=== PATIENT | female | born 1945 | race American Indian/Alaskan Native ===

== ENCOUNTER 2021-05-06 13:13 | Emergency (ER) | payer MEDICARE ==
[2021-05-06 15:20] VITALS: BP 141/59
--- NOTE | 2021-05-06 18:21 | Emergency Department Report ---
ED General Adult HPI - General Chief complaint: Skin Rash Stated complaint: SKIN PROBLEM PUI?: No Time Seen by Provider: 05/06/21 18:11 Source: patient Mode of arrival: Ambulatory Limitations: No Limitations - History of Present Illness Initial comments: 76-year-old -[place] female presents to the emergency room concern for things crawling under her skin. Patient states is been going on for moment and had seen her primary care provider Dr. Betsy Raymond and was prescribed a fluocinolone 0.01%. Which she reports is not helping. Patient is currently on montelukast, omeprazole, amlodipine and eyedrops. Her next appointment with her primary care provider is on [address] Betsy Raymond. Onset/Timin -: week(s) Location: lower extremity Quality: other (It feels like something is crawling under her skin) Improves with: none Worsens with: none Associated Symptoms: denies other symptoms - Related Data Previous Rx's Medication Instructions Recorded Last Taken Type Clotrimazole/Betamethasone Dip 1 applic TP BID #15 cream..g. 05/06/21 Unknown Rx [Lotrisone Cream] Allergies Allergy/AdvReac Type Severity Reaction Status Date / Time No Known Allergies Allergy Unverified 05/06/21 15:20 ED Review of Systems ROS: Stated complaint: SKIN PROBLEM Other details as noted in HPI Comment: All other systems reviewed and negative ED Past Medical Hx - Medications Home Medications: Home Medications Medication Instructions Recorded Confirmed Last Taken Type Clotrimazole/Betamethasone Dip 1 applic TP BID #15 cream..g. 05/06/21 Unknown Rx [Lotrisone Cream] ED Physical Exam - General Limitations: No Limitations General appearance: alert, in no apparent distress - Head Head exam: Present: atraumatic, normocephalic - Eye Eye exam: Present: normal appearance - ENT ENT exam: Present: mucous membranes moist - Neck Neck exam: Present: normal inspection - Respiratory Respiratory exam: Present: normal lung sounds bilaterally. Absent: respiratory distress - Cardiovascular Cardiovascular Exam: Present: regular rate, normal rhythm. Absent: systolic murmur, diastolic murmur, rubs, gallop - GI/Abdominal GI/Abdominal exam: Present: soft, normal bowel sounds - Extremities Exam Extremities exam: Present: normal inspection - Back Exam Back exam: Present: normal inspection - Neurological Exam Neurological exam: Present: alert, oriented X3 - Psychiatric Psychiatric exam: Present: normal affect, normal mood - Skin Skin exam: Present: warm, dry, intact, normal color. Absent: rash ED Course Vital Signs 05/06/21 15:16 Temperature 98.9 F Pulse Rate 78 Respiratory 16 Rate Blood Pressure 141/59 O2 Sat by Pulse 98 Oximetry ED Medical Decision Making - Medical Decision Making 76-year-old -[place] female presents to the emergency room concern for things crawling under her skin. Patient states is been going on for moment and had seen her primary care provider Dr. Betsy Raymond and was prescribed a fluocinolone 0.01%. Which she reports is not helping. Patient is currently on montelukast, omeprazole, amlodipine and eyedrops. Her next appointment with her primary care provider is on [address] Betsy Raymond. Critical care attestation.: If time is entered above; I have spent that time in minutes in the direct care of this critically ill patient, excluding procedure time. ED Disposition Clinical Impression: Pruritus Disposition: 01 HOME / SELF CARE / HOMELESS Is pt being admited?: No Does the pt Need Aspirin: No Condition: Stable Instructions: Pruritus Additional Instructions: Use cream to legs and follow-up with your primary care provider. Prescriptions: Clotrimazole/Betamethasone Dip [Lotrisone Cream] 1 applic TP BID #15 cream..g. Referrals: PRIMARY CARE, [Primary Care Provider] - 3-5 Days THERESA RAYMOND MD [Staff Physician] - 3-5 Days Time of Disposition: 21:05
== END 2021-05-06 21:15 | disposition home or self-care (01) ==
LOC: ED 13:13
DX: L29.9 Pruritus, unspecified (principal); Z79.899 Other long term (current) drug therapy
CPT/HCPCS: 99282

== ENCOUNTER 2022-01-12 22:20 | Emergency (ER) | payer MEDICARE ==
[2022-01-13 09:24] LABS: Basophils # (Auto) 0.1 K/mm3 (0.0-0.1); Eosinophils # (Auto) 0.4 K/mm3 (0.0-0.4); Eosinophils % (Auto) 6.8 % (0.0-4.3); Hematocrit 37.1 % (30.3-42.9); Hemoglobin 12.2 gm/dl (10.1-14.3); Lymphocytes # (Auto) 2.1 K/mm3 (1.2-5.4); Lymphocytes % (Auto) 36.9 % (13.4-35.0); Mean Corpuscular HGB Conc 33 % (30-34); Mean Corpuscular Volume 93 fl (79-97); Monocytes # (Auto) 0.4 K/mm3 (0.0-0.8); Monocytes % (Auto) 7.1 % (0.0-7.3); Platelet Count 279 K/mm3 (140-440); Red Blood Count 3.99 M/mm3 (3.65-5.03); Red Cell Distribution Width 14.2 % (13.2-15.2)
[2022-01-13 09:47] LABS: Alanine Aminotransferase 8 units/L (7-56); Albumin 4.6 g/dL (3.9-5); BUN/Creatinine Ratio 20; Blood Urea Nitrogen 16 mg/dL (7-17); Calcium 9.4 mg/dL (8.4-10.2); Hemolysis Index 7
[2022-01-13] MEDS ORDERED: diphenhydrAMINE 25 MG/10 ML ORAL LIQUID PO ONE (09:55)
[2022-01-13] MEDS ORDERED: FAMOTIDINE 20 MG TAB PO ONE (09:55)
[2022-01-13] MEDS ORDERED: predniSONE 20 MG TAB PO ONE (09:55)
--- NOTE | 2022-01-13 11:23 | Emergency Department Report ---
ED General Adult HPI - General Chief complaint: Weakness Stated complaint: BODY RASH AND SWELLING IN LEGS Time Seen by Provider: 01/13/22 07:40 Source: patient Mode of arrival: Ambulatory Limitations: No Limitations - History of Present Illness Severity scale (0 -10): 2 - Related Data Previous Rx's Medication Instructions Recorded Last Taken Type Cetirizine HCl [ZyrTEC] 10 mg PO DAILY #30 capsule 01/13/22 Unknown Rx diphenhydrAMINE [Benadryl CAP] 12.5 mg PO Q8HR PRN #20 capsule 01/13/22 Unknown Rx predniSONE [Deltasone] 20 mg PO DAILY #5 tablet 01/13/22 Unknown Rx Allergies Allergy/AdvReac Type Severity Reaction Status Date / Time No Known Allergies Allergy Unverified 05/06/21 15:20 ED Review of Systems ROS: Stated complaint: BODY RASH AND SWELLING IN LEGS Other details as noted in HPI Comment: All other systems reviewed and negative ED Past Medical Hx - Past Medical History Previous Medical History?: Yes Hx Hypertension: Yes Hx Asthma: Yes ([place]) - Surgical History Past Surgical History?: No - Family History Family history: no significant - Social History Smoking Status: Never Smoker Substance Use Type: None - Medications Home Medications: Home Medications Medication Instructions Recorded Confirmed Last Taken Type Cetirizine HCl [ZyrTEC] 10 mg PO DAILY #30 capsule 01/13/22 Unknown Rx diphenhydrAMINE [Benadryl CAP] 12.5 mg PO Q8HR PRN #20 capsule 01/13/22 Unknown Rx predniSONE [Deltasone] 20 mg PO DAILY #5 tablet 01/13/22 Unknown Rx ED Physical Exam - General Limitations: No Limitations General appearance: alert, in no apparent distress - Head Head exam: Present: atraumatic, normocephalic - Eye Eye exam: Present: normal appearance - ENT ENT exam: Present: mucous membranes moist - Neck Neck exam: Present: normal inspection - Respiratory Respiratory exam: Present: normal lung sounds bilaterally. Absent: respiratory distress - Cardiovascular Cardiovascular Exam: Present: regular rate, normal rhythm. Absent: systolic murmur, diastolic murmur, rubs, gallop - GI/Abdominal GI/Abdominal exam: Present: soft, normal bowel sounds - Extremities Exam Extremities exam: Present: normal inspection - Back Exam Back exam: Present: normal inspection - Neurological Exam Neurological exam: Present: alert, oriented X3 - Psychiatric Psychiatric exam: Present: normal affect, normal mood - Skin Skin exam: Present: warm, dry, intact, normal color, rash ED Course Vital Signs 01/12/22 23:12 Temperature 98.6 F Pulse Rate 76 Respiratory 16 Rate Blood Pressure 148/64 [Right] O2 Sat by Pulse 98 Oximetry ED Medical Decision Making - Lab Data Result diagrams: 01/13/22 08:32 01/13/22 08:32 - Medical Decision Making Vital Signs 01/12/22 23:12 Temperature 98.6 F Pulse Rate 76 Respiratory 16 Rate Blood Pressure 148/64 [Right] O2 Sat by Pulse 98 Oximetry Lab Results 01/13/22 01/13/22 Range/Units 08:32 08:32 WBC 5.6 (4.5-11.0) K/mm3 RBC 3.99 (3.65-5.03) M/mm3 Hgb 12.2 (10.1-14.3) gm/dl Hct 37.1 (30.3-42.9) % MCV 93 (79-97) fl MCH 31 (28-32) pg MCHC 33 (30-34) % RDW 14.2 (13.2-15.2) % Plt Count 279 (140-440) K/mm3 Lymph % (Auto) 36.9 H (13.4-35.0) % Mcintosh % (Auto) 7.1 (0.0-7.3) % Eos % (Auto) 6.8 H (0.0-4.3) % Baso % (Auto) 1.0 (0.0-1.8) % Lymph # (Auto) 2.1 (1.2-5.4) K/mm3 Mcintosh # (Auto) 0.4 (0.0-0.8) K/mm3 Eos # (Auto) 0.4 (0.0-0.4) K/mm3 Baso # (Auto) 0.1 (0.0-0.1) K/mm3 Seg Neutrophils % 48.2 (40.0-70.0) % Seg Neutrophils # 2.7 (1.8-7.7) K/mm3 Sodium 141 (137-145) mmol/L Potassium 4.7 (3.6-5.0) mmol/L Chloride 102.5 (98-107) mmol/L Carbon Dioxide 26 (22-30) mmol/L Anion Gap 17 mmol/L BUN 16 (7-17) mg/dL Creatinine 0.8 (0.6-1.2) mg/dL Estimated GFR > 60 ml/min BUN/Creatinine Ratio 20 % Glucose 93 (65-100) mg/dL Calcium 9.4 (8.4-10.2) mg/dL Total Bilirubin 0.80 (0.1-1.2) mg/dL AST 17 (5-40) units/L ALT 8 (7-56) units/L Alkaline Phosphatase 99 (35-129) units/L Troponin T < 0.010 (0.00-0.029) ng/mL NT-Pro-B Natriuret Pep 40.68 (0-900) pg/mL Total Protein 8.2 (6.3-8.2) g/dL Albumin 4.6 (3.9-5) g/dL Albumin/Globulin Ratio 1.3 % Critical care attestation.: If time is entered above; I have spent that time in minutes in the direct care of this critically ill patient, excluding procedure time. ED Disposition Clinical Impression: Allergic reaction Disposition: 01 HOME / SELF CARE / HOMELESS Is pt being admited?: No Does the pt Need Aspirin: No Condition: Stable Instructions: Allergies, Adult, [id number] Additional Instructions: MEDS ORDERED TODAY FOLLOW UP WITH PCP IN 48 HOURS REFERRAL BELOW FOR ANOTHER PCP Referrals: JESSICA HAMPTON MD [Primary Care Provider] - 3-5 Days MARGARET NEAL MD [Staff Physician] - 3-5 Days Time of Disposition: 11:20
[2022-01-13 11:55] VITALS: BP 138/74
== END 2022-01-13 11:55 | disposition home or self-care (01) ==
LOC: ED 22:20
DX: T78.40XA Allergy, unspecified, initial encounter (principal); X58.XXXA Exposure to other specified factors, initial encounter
CPT/HCPCS: 36415; 80053; 83880; 84484; 85025; 99283; Q0163